=== PATIENT | female | born 1995 | race Caucasian/White ===

== ENCOUNTER 2017-04-10 06:26 | Emergency (ER) | payer OTHER ==
[~2017-04-10 06:26] MED LIST: PREN1TAB63
--- NOTE | 2017-04-10 07:46 | PD ---
HPI Chief Complaint Contractions Date Seen: Apr 10, 2017 Time Seen: 07:43 Travel History International Travel<30 Days: No Contact w/Intl Traveler<30Days: No Known Affected Area: No History of Present Illness HPI 21-year-old who is at 40 weeks and 5 days comes in complaining of contractions since midnight. Patient had membrane stripping yesterday and states that she was 2 cm in the office yesterday. She has no adduction set up as she is trying to avoid induction if possible. 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 Group B strep Weeks Gestation: 40 Para: 0 : 2 History Past Medical History Narrative Medical Anemia Past Surgical History Narrative Surgical Knee surgery Family History Family History: Negative Social History Alcohol Use: No Tobacco Use: No Substance Abuse: No Allergies-Medications (Allergen,Severity, Reaction): Coded Allergies: valacyclovir (Verified Allergy, Intermediate, rash, 04/10/17) amoxicillin (Unverified Allergy, Mild, Hives, 11/20/16) penicillin G (Unverified Allergy, Mild, Hives, 11/20/16) Home Meds Reported Medications Multivit-Min W/Fe-FA ( Vitamins 0.8 mg) 1 Tab Tab 10/23/16 Review of Systems Except as stated in HPI: all other systems reviewed are Neg Physical Exam Narrative GENERAL: Well-nourished, well-developed patient. SKIN: Warm and dry. HEAD: Normocephalic and atraumatic. EYES: No scleral icterus. No injection or drainage. ENT: No nasal drainage noted. Mucous membranes pink. Airway patent. NECK: Supple, trachea midline. No JVD. CARDIOVASCULAR: Regular rate and rhythm without murmurs, gallops, or rubs. RESPIRATORY: Breath sounds equal bilaterally. No accessory muscle use. ABDOMEN/GI: Abdomen soft, non-tender, bowel sounds present, no rebound, no guarding Gravid to [-] weeks size. term size Fundal Height: [-] GENITOURINARY: External Genitalia: intact and normal in appearance BUS glands: [-] Normal Cervix: [-] Posterior Dilatation: [-] 1 Effacement: [-] 80 Station: [-] -3 Presentation: [-] Membranes: [intact or ruptured] intact Uterine Contractions: [-] Every 5-10 FHT's: Category: [-] 1 Baseline: [-] 140 Reactive: [-] Moderate Variability: [-] Moderate Decels: [-] Absent EXTREMITIES: No cyanosis or edema. BACK: Nontender without obvious deformity. No CVA tenderness. NEUROLOGICAL: Awake and alert. Motor and sensory grossly within normal limits. Five out of 5 muscle strength in all muscle groups. Normal speech. Cervical recheck at 0830 No change Contractions are more irregular and less painful Data Data Vital Signs Reviewed: Yes Group B Strep: Negative MDM Medical Record Reviewed: Yes Plan 21-year-old at 40 weeks 5 days with false labor Patient does not desire to stay for induction, she is attempting to have as normal labor as possible and would rather have spontaneous onset Patient has a follow-up at the office day after tomorrow Discharge home, labor precautions were reviewed Diagnosis Diagnosis: Primary Impression: 40 weeks gestation of Additional Impression: Uterine contractions during Disposition: DISCHARGE HOME Tenisha Orr MD Apr 10, 2017 07:46
== END 2017-04-10 08:39 | disposition home or self-care (01) ==
LOC: HOBED 06:26
DX: O47.1 False labor at or after 37 completed weeks of gestation (principal); Z3A.40 40 weeks gestation of pregnancy; Z88.0 Allergy status to penicillin; Z88.8 Allergy status to other drugs, medicaments and biological substances
CPT/HCPCS: 59025

== ENCOUNTER 2017-04-10 19:46 | Emergency (ER) | payer OTHER ==
--- NOTE | 2017-04-10 22:30 | PD ---
HPI Chief Complaint ctxs Date Seen: Apr 10, 2017 Time Seen: 22:20 Travel History International Travel<30 Days: No Contact w/Intl Traveler<30Days: No Known Affected Area: No History of Present Illness HPI pt. is a @ 40 5/7 weeks present w/ c/o ctxs. pt. seen earlier in day w / same c/o and had minimal cervical dilation. +FM, no lof/vb. pt. cervical exam /high/posterior and had no change after monitoring for 2 hours. Weeks Gestation: 40 Para: 0 : 2 History Past Medical History Medical History: Denies Significant Hx Past Surgical History Surgical History: No Previous Surgery Family History Family History: Negative Social History Alcohol Use: No Tobacco Use: No Substance Abuse: No Allergies-Medications (Allergen,Severity, Reaction): Coded Allergies: valacyclovir (Verified Allergy, Intermediate, rash, 04/10/17) amoxicillin (Unverified Allergy, Mild, Hives, 11/20/16) penicillin G (Unverified Allergy, Mild, Hives, 11/20/16) Home Meds Reported Medications Multivit-Min W/Fe-FA ( Vitamins 0.8 mg) 1 Tab Tab 10/23/16 Review of Systems Except as stated in HPI: all other systems reviewed are Neg Physical Exam Narrative GENERAL: Well-nourished, well-developed patient. SKIN: Warm and dry. HEAD: Normocephalic and atraumatic. EYES: No scleral icterus. No injection or drainage. ENT: No nasal drainage noted. Mucous membranes pink. Airway patent. NECK: Supple, trachea midline. No JVD. CARDIOVASCULAR: Regular rate and rhythm without murmurs, gallops, or rubs. RESPIRATORY: Breath sounds equal bilaterally. No accessory muscle use. BREASTS: Bilateral exam showed no masses , no retractions, no nipple discharge. ABDOMEN/GI: Abdomen soft, non-tender, bowel sounds present, no rebound, no guarding Gravid GENITOURINARY: External Genitalia: intact and normal in appearance Dilatation: 3 Effacement: 70 Station: high Presentation: cephalic Membranes: intact Uterine Contractions: q 2-4 mins FHT's: Category: 1 Reactive: + Variability: variability Decels: none EXTREMITIES: No cyanosis or edema. BACK: Nontender without obvious deformity. No CVA tenderness. NEUROLOGICAL: Awake and alert. Motor and sensory grossly within normal limits. Five out of 5 muscle strength in all muscle groups. Normal speech. Data Data Vital Signs Reviewed: Yes MDM Plan pt. to be d/c to home. fht reassuring. pt. most prob in latent labor. condition d/w pt. all ? answered. pt. given precautions for return. f/u as sched. Diagnosis Diagnosis: Primary Impression: Uterine contractions during Additional Impression: 40 weeks gestation of Disposition: DISCHARGE HOME Patient Instructions: General Instructions Departure Forms: Tests/Procedures Jose Leiva Jr., MD Apr 10, 2017 22:29
[2017-04-10] MEDS ORDERED: diphenhydrAMINE HCL 50 MG CAP PO ONE (23:00)
[2017-04-10] MEDS ORDERED: MEPERIDINE HCL 50 MG/ML VIAL IM ONE (23:00)
== END 2017-04-10 23:17 | disposition home or self-care (01) ==
LOC: HOBED 19:46
DX: O47.1 False labor at or after 37 completed weeks of gestation (principal); Z3A.40 40 weeks gestation of pregnancy; Z88.0 Allergy status to penicillin; Z88.8 Allergy status to other drugs, medicaments and biological substances
CPT/HCPCS: 96372; 99283; J2175; Q0163

== ENCOUNTER 2017-04-11 15:09 | Inpatient (IN) | payer OTHER ==
[2017-04-11] VITALS (7 sets, daily range): BP systolic 124–145; BP diastolic 77–92; PULSE 104–110; RESP 15–20; TEMP 98–98.1
[~2017-04-11] VITALS: Ht 167.6 cm; Wt 64.0 kg
[2017-04-11] MEDS ORDERED: LACTATED RINGER'S 1000 ML INJ 1,000 ML IV PRN (15:31)
--- NOTE | 2017-04-11 15:31 | HHI.HP ---
HPI Chief Complaint Labor pain Date Seen: Apr 11, 2017 Time Seen: 15:25 Travel History International Travel<30 Days: No Contact w/Intl Traveler<30Days: No Known Affected Area: No History of Present Illness HPI 21-year-old white female at 40-- 41 weeks patient with [facility] presents complaining of contraction pain. Denies bleeding or leakage of fluid. heart tracing is reactive. Contractions noted on the monitor. Weeks Gestation: 40 Para: 0 : 2 Last Menstrual Period: Apr 11, 2017 Miscarriage: 1 History Obstetric History Obstetric History 1 early loss Social History Alcohol Use: No Tobacco Use: No Substance Abuse: No Allergies-Medications (Allergen,Severity, Reaction): Coded Allergies: valacyclovir (Verified Allergy, Intermediate, rash, 04/10/17) amoxicillin (Unverified Allergy, Mild, Hives, 11/20/16) penicillin G (Unverified Allergy, Mild, Hives, 11/20/16) Home Meds Reported Medications Multivit-Min W/Fe-FA ( Vitamins 0.8 mg) 1 Tab Tab 10/23/16 Review of Systems General / Constitutional: No: Fever, Weight Gain, Chills, Other Eyes: No: Diploplia, Blurred Vision, Visual changes, Pain, Photophobia HENT: No: Headaches, Vertigo, Lightheadedness Cardiovascular: No: Irregular Rhythm, Chest Pain or Discomfort, Palpitations, Tachycardia, Syncope, Varicosities, Edema, Cyanosis Respiratory: No: Cough, Short of Breath, Other Gastrointestinal: Abdominal Pain, No: Nausea, Vomiting, Diarrhea Genitourinary: No: Decreased Urinary Output, Oliguria Musculoskeletal: No: Limited ROM, Weakness, Cramping, Edema, Pain Skin: No Rash, No Itching, No Dryness, No Lumps, No Change in Pigmentation, No Change in Nails, No Alopecia, No Lesions Neurologic: No: Weakness, Dizziness, Syncope, Focal Abnormalities, Coordination Problem, Headache, Slurred Speech, Seizures Psychiatric: No: Depression, Suicidal Ideations, Homicidal Ideation Endocrine: No: Heat Intolerance, Cold Intolerance, Polydipsia, Polyuria, Other Physical Exam Narrative GENERAL: Well-nourished, well-developed patient. SKIN: Warm and dry. HEAD: Normocephalic and atraumatic. EYES: No scleral icterus. No injection or drainage. ENT: No nasal drainage noted. Mucous membranes pink. Airway patent. NECK: Supple, trachea midline. No JVD. CARDIOVASCULAR: Regular rate and rhythm without murmurs, gallops, or rubs. RESPIRATORY: Breath sounds equal bilaterally. No accessory muscle use. BREASTS: Bilateral exam showed no masses , no retractions, no nipple discharge. ABDOMEN/GI: Abdomen soft, non-tender, bowel sounds present, no rebound, no guarding Gravid to [-40] weeks size Fundal Height: [36-] GENITOURINARY: External Genitalia: intact and normal in appearance BUS glands: [-] Cervix: [ant-] Dilatation: [6-] Effacement: [100-] Station: [0-] Presentation: [vtx-] Membranes: [intact ] Uterine Contractions: [reg-] FHT's: Category: 1[-] Baseline: [133-] Reactive: [-R] Variability: [mod-] Decels: [-none] EXTREMITIES: No cyanosis or edema. BACK: Nontender without obvious deformity. No CVA tenderness. NEUROLOGICAL: Awake and alert. Motor and sensory grossly within normal limits. Five out of 5 muscle strength in all muscle groups. Normal speech. Caprini VTE Risk Assessment Caprini VTE Risk Assessment: No/Low Risk (score <= 1) Caprini Risk Assessment Model Point Value = 1 Point Value = 2 Point Value = 3 Point Value = 5 Age 41-60 Minor surgery BMI > 25 kg/m2 Swollen legs Varicose veins or History of unexplained or recurrent spontaneous Oral contraceptives or hormone replacement Sepsis (< 1 month) Serious lung disease, including pneumonia (< 1 month) Abnormal pulmonary function Acute myocardial infarction Congestive heart failure (< 1 month) History of inflammatory bowel disease Medical patient at bed rest Age 61-74 Arthroscopic surgery Major open surgery (> 45 min) Laparoscopic surgery (> 45 min) Malignancy Confined to bed (> 72 hours) Immobilizing plaster cast Central venous access Age >= 75 History of VTE Family history of VTE Factor V Leiden Prothrombin [id number] Lupus anticoagulant Anticardiolipin antibodies Elevated serum homocysteine Heparin-induced thrombocytopenia Other congenital or acquired thrombophilia Stroke (< 1 month) Elective arthroplasty Hip, pelvis, or leg fracture Acute spinal cord injury (< 1 month) Prophylaxis Regimen Total Risk Factor Score Risk Level Prophylaxis Regimen 0-1 Low Early ambulation 2 Moderate Order ONE of the following: *Sequential Compression Device (SCD) *Heparin 5000 units SQ BID 3-4 Higher Order ONE of the following medications: *Heparin 5000 units SQ TID *Enoxaparin/Lovenox 40 mg SQ daily (WT < 150 kg, CrCl > 30 mL/min) *Enoxaparin/Lovenox 30 mg SQ daily (WT < 150 kg, CrCl > 10-29 mL/min) *Enoxaparin/Lovenox 30 mg SQ BID (WT < 150 kg, CrCl > 30 mL/min) AND/OR *Sequential Compression Device (SCD) 5 or more Highest Order ONE of the following medications: *Heparin 5000 units SQ TID (Preferred with Epidurals) *Enoxaparin/Lovenox 40 mg SQ daily (WT < 150 kg, CrCl > 30 mL/min) *Enoxaparin/Lovenox 30 mg SQ daily (WT < 150 kg, CrCl > 10-29 mL/min) *Enoxaparin/Lovenox 30 mg SQ BID (WT < 150 kg, CrCl > 30 mL/min) AND *Sequential Compression Device (SCD) Data Data Orders Orders Ob (2e) Additional Admit Info (04/11/17 15:18) Group B Strep: Negative Assessment/Plan Assessment and Plan Impression--term intrauterine now in active labor admitted with cervical dilation is 6/100/0 station, heart tracing is reactive contractions noted the patient's in obvious distress Plan--admit to labor and delivery, managed labor appropriately, anticipate vaginal delivery, will discuss with Dr. Vann covering doctor for Nahid James II, MD Apr 11, 2017 15:31
[2017-04-11] MEDS ORDERED: CITRIC ACID-SODIUM CITRATE LIQ 30 ML UDC PO SCH (15:45)
[2017-04-11] MEDS ORDERED: OXYTOCIN 30 UNITS-500ML PREMIX 500 ML IV ONE (15:45)
[2017-04-11] MEDS ORDERED: LIDOCAINE HCL 1% 50 ML VIAL I-DERMAL PRN (15:45)
[2017-04-11] MEDS ORDERED: MINERAL OIL 10 ML VIAL TOPICAL PRN (15:45)
[2017-04-11] MEDS ORDERED: SODIUM CHLORID 0.9% 500 ML INJ 500 ML IV PRN (15:45)
[2017-04-11] MEDS ORDERED: LIDOCAINE HCL 1% 50 ML VIAL INFIL PRN (15:45)
[2017-04-11] MEDS ORDERED: SODIUM CHLOR 0.9% 1000 ML INJ 1,000 ML IV PRN (15:51)
[2017-04-11 16:03] LABS: AUTOMATED NEUTROPHIL # 11.1 TH/MM3 (1.8-7.7); BASOPHIL % 0.2 % (0.0-2.0); EOSINOPHIL % 0.1 % (0.0-4.0); HEMATOCRIT 34.7 % (35.0-46.0); HEMOGLOBIN 11.6 GM/DL (11.6-15.3); LYMPH % 9.4 % (9.0-44.0); LYMPHOCYTE # 1.2 TH/MM3 (1.0-4.8); MEAN CELL VOLUME 82.9 FL (80.0-100.0); MEAN CORPUSCULAR HEMOGLOBIN 27.7 PG (27.0-34.0); MEAN CORPUSCULAR HGB CONC 33.4 % (32.0-36.0); MONO % 5.2 % (0.0-8.0); MONOCYTE # 0.7 TH/MM3 (0-0.9); NEUT % 85.1 % (16.0-70.0); PLATELET COUNT 343 TH/MM3 (150-450); RED BLOOD COUNT 4.19 MIL/MM3 (4.00-5.30); RED CELL DISTRIBUTION WIDTH 18.4 % (11.6-17.2); WHITE BLOOD COUNT 13.1 TH/MM3 (4.0-11.0)
[2017-04-11] MEDS: LACTATED RINGER'S 1000 ML INJ 1,000 ML IV SCH (16:32)
[2017-04-11 18:21] LABS: AMORPHOUS SEDIMENT, URINE RARE; BACTERIA, URINE RARE /hpf; BILIRUBIN, URINE NEG (NEG); BLOOD, URINE MOD (NEG); GLUCOSE,URINE NEG (NEG); KETONE, URINE 150 mg/dL (NEG); MUCUS URINE FEW /lpf (OCC); NITRITE,URINE NEG (NEG); SQUAMOUS EPITHELIAL CELL URINE 1 /hpf (0-5); URINE COLOR YELLOW (YELLW/STRAW); URINE LEUKOCYTE ESTERASE MOD (NEG)
[2017-04-11] MEDS ORDERED: LIDOCAINE HCL 1% 20 ML VIAL ONE (23:37)
[2017-04-12] VITALS (15 sets, daily range): BP systolic 85–137; BP diastolic 34–100; PULSE 105–124; RESP 15–18; TEMP 97.8–98.3; O2SAT 98
[2017-04-12] MEDS ORDERED: LIDOCAINE HCL 1% 20 ML VIAL ONE ×2 (02:18→02:23)
[2017-04-12] MEDS ORDERED: LIDOCAINE HCL 1% PF 5 ML AMPULE ONE ×2 (02:25→03:38)
[2017-04-12] MEDS ORDERED: OXYTOCIN 30 UNITS-500ML PREMIX 500 ML ONE (03:09)
[2017-04-12] MEDS: LACTATED RINGER'S 1000 ML INJ 1,000 ML IV SCH ×3 (03:34→17:02)
[2017-04-12] MEDS: IBUPROFEN 800 MG TAB PO PRN ×3 (03:43→21:09)
[2017-04-12] MEDS ORDERED: WITCH HAZEL 50%/GLYCERIN 12.5% 40 PAD JAR TOPICAL PRN (03:45)
[2017-04-12] MEDS ORDERED: SODIUM CHLORIDE 0.9% FLUSH 10 ML FLUSH IV FLUSH PRN (03:45)
[2017-04-12] MEDS ORDERED: ONDANSETRON ODT 4 MG TAB PO PRN (03:45)
[2017-04-12] MEDS ORDERED: ZOLPIDEM TARTRATE 5 MG TAB PO PRN (03:45)
[2017-04-12] MEDS ORDERED: ACETAMINOPHEN 325 MG TAB PO PRN (03:45)
[2017-04-12] MEDS ORDERED: ALUMINUM/MAGNESIUM/SIMETH 30 ML CUP PO PRN (03:45)
[2017-04-12] MEDS ORDERED: BENZOCAINE 20% TOPICAL SPRAY 60 ML CAN TOPICAL PRN (03:45)
[2017-04-12] MEDS ORDERED: OXYTOCIN 30 UNITS-500ML PREMIX 500 ML IV SCH (03:45)
--- NOTE | 2017-04-12 03:53 | PD.OB.DELI ---
Weeks gestation: 40 Anesthesia: Lidocaine pudendal block, Lidocaine local to perineum Episiotomy: None Vaginal Delivery: Forceps Presentation: Occiput anterior, Vertex Nuchal Cord: None Delayed cord clamping (45 sec): Yes : Male Delivery date: Apr 12, 2017 Delivery time: 02:35 One Minute : 8 Five Minute : 9 Weight: 3445 gm Placenta: Spontaneous delivery, Intact, Cord pH Laceration: Vaginal laceration, Perineal laceration, 2 deg Repair: Chromic running Estimated blood loss: 750 Additional Information Patient had a prolonged second stage pushed for 2-1/2 hours , she brought the presenting part to +2 station with left OA position that was almost a deep transverse arrest or transverse lie of the head Hernandez-Oneal forceps used for a low forcep delivery, one application was performed without difficulty with traction in the appropriate fashion and then delivery of the head, examining the baby forceps were placed in the appropriate positions and no significant sign of injury bruising or laceration to the baby. Cord pH 7.37. Mother delivered placenta without difficulty, right sidewall laceration was identified in 2-0 running chromic suture used to close the space and bring the tissue planes together and achieve hemostasis. The perineal body and posterior fourchette been stretched out by the force of delivery but there was only minimal laceration second-degree perineal laceration with attenuation of the rectal sphincter muscle but it was not torn it was only stretched out to a significant degree and this defect was closed in a running 2-0 Chromic Suture Also Close space below the vaginal mucosa is well as supported and re-align the anal sphincter the rectum was checked and there was no defect or laceration to the rectum no blowout hole or on a undetected fistula the rectovaginal space was intact, pudendal block was used for anesthesia along with a local lidocaine in the perineal body which worked very well for anesthesia for this repair, EBL was 750 cc, and mother tolerated procedure very well may be doing well in the nursery Nahid Drummond II, MD Apr 12, 2017 03:53
[2017-04-12] MEDS ORDERED: LIDOCAINE 2% JELLY 5 ML TUBE OTHER PRN (05:15)
[2017-04-12 08:06] LABS: HEMATOCRIT 22.2 % (35.0-46.0); HEMOGLOBIN 7.3 GM/DL (11.6-15.3)
--- NOTE | 2017-04-12 08:14 | HHI.OB ---
Subjective Post Day: 0 Remarks Nursing quietly after difficult second stage with outlet forceps and side wall repairs (thank you Dr. Drummond) feeling somewhat light headed and aware that she may need transfusion Objective Vitals/I&O Vital Signs Date Time Temp Pulse Resp B/P (MAP) Pulse Ox O2 Delivery O2 Flow Rate FiO2 04/11/17 19:30 98.1 15 04/11/17 19:25 107 126/77 (93) 04/11/17 18:00 104 129/80 (96) 04/11/17 15:42 107 124/80 (95) Objective Remarks GENERAL: Well-nourished, well-developed patient. CARDIOVASCULAR: Regular rate and rhythm without murmurs, gallops, or rubs. RESPIRATORY: Breath sounds equal bilaterally. No accessory muscle use. ABDOMEN/GI: Abdomen soft, non-tender. Fundus: Firm, non-tender at umbilicus. GENITOURINARY: Light to moderate bleeding. perineum mildly swollen and reed in place with clear urine EXTREMITIES: No cyanosis or edema, non-tender, without signs of DVT. Medications and IVs Current Medications Medications (Trade) Dose Ordered Sig/Helio Route Start Time Stop Time Status Last Admin (NS Flush) 2 ml BID IV FLUSH 04/12/17 09:00 (NS Flush) 2 ml UNSCH PRN IV FLUSH 04/12/17 03:45 Oxytocin 500 ml @ 100 mls/hr CONTINUOUS IV 04/12/17 03:45 04/12/17 08:44 04/12/17 04:45 (Tylenol) 650 mg Q4H PRN PO 04/12/17 03:45 (Motrin) 800 mg Q8H PRN PO 04/12/17 03:45 04/12/17 03:43 (Percocet 5-325 Mg) 1 tab Q4H PRN PO 04/12/17 03:45 (Americaine 20% Top Spr) 1 spray Q4H PRN TOPICAL 04/12/17 03:45 (Tucks Pads) 1 applic QID PRN TOPICAL 04/12/17 03:45 (Mitzy-Colace) 2 tab Q12H PRN PO 04/12/17 03:45 (Ambien) 5 mg HS PRN PO 04/12/17 03:45 (M-M-R Ii Inj) 0.5 ml ONCE ONCE SQ 04/12/17 16:00 04/12/17 16:01 (Boostrix Inj) 0.5 ml ONCE ONCE IM 04/12/17 16:00 04/12/17 16:01 (Mag-Al Plus Susp Liq) 15 ml Q8H PRN PO 04/12/17 03:45 (Zofran Odt) 4 mg Q6H PRN PO 04/12/17 03:45 (Xylocaine 2% Jelly) 1 applic ONCE PRN OTHER 04/12/17 05:15 04/19/17 05:14 Assessment/Plan Assessment and Plan Impression--term intrauterine now in active labor admitted with cervical dilation is 6/100/0 station, heart tracing is reactive contractions noted the patient's in obvious distress Plan--admit to labor and delivery, managed labor appropriately, anticipate vaginal delivery, will discuss with Dr. Vann covering doctor for Shima 04/12/17 0800 Reviewed her delivery experience and she is relieved not to have had a section. She understands she may need transfusion but accepts venoifir at this time and will wait for clinical improvement of orthostatics or blood. Esperanza Covington MD Apr 12, 2017 08:14
[2017-04-12] MEDS ORDERED: IRON SUCROSE 100 MG/5 ML VIAL IV PUSH ONE (08:15)
[2017-04-12] MEDS: SODIUM CHLORIDE 0.9% FLUSH 10 ML FLUSH IV FLUSH SCH (10:29)
[2017-04-12] MEDS: DOCUSATE SODIUM 50 MG/SENNA 8.6 MG TAB PO PRN (12:19)
[2017-04-12] MEDS: oxyCODONE/ACETAMINOPHEN 5 MG/325 MG TAB PO PRN ×2 (12:19→19:40)
[2017-04-12] MEDS ORDERED: MEASLES, MUMPS, RUBELLA VACCINE 0.5 ML VIAL SQ ONE (16:00)
[2017-04-12] MEDS ORDERED: DIPHTH/TETANUS/ACEL PERTUSSIS (BOOSTER) 0.5 ML VIAL/PFS IM ONE (16:00)
[2017-04-13] MEDS: oxyCODONE/ACETAMINOPHEN 5 MG/325 MG TAB PO PRN ×2 (03:59→08:56)
[2017-04-13 06:18] LABS: AUTOMATED NEUTROPHIL # 6.4 TH/MM3 (1.8-7.7); BASOPHIL % 0.2 % (0.0-2.0); EOSINOPHIL # 0.1 TH/MM3 (0-0.4); EOSINOPHIL % 0.6 % (0.0-4.0); LYMPH % 23.5 % (9.0-44.0); LYMPHOCYTE # 2.2 TH/MM3 (1.0-4.8); MEAN CELL VOLUME 83.7 FL (80.0-100.0); MEAN CORPUSCULAR HEMOGLOBIN 28.4 PG (27.0-34.0); MEAN PLATELET VOLUME 7.8 FL (7.0-11.0); MONO % 8.9 % (0.0-8.0); MONOCYTE # 0.8 TH/MM3 (0-0.9); NEUT % 66.8 % (16.0-70.0); PLATELET COUNT 245 TH/MM3 (150-450); RED BLOOD COUNT 1.97 MIL/MM3 (4.00-5.30); RED CELL DISTRIBUTION WIDTH 18.6 % (11.6-17.2); WHITE BLOOD COUNT 9.5 TH/MM3 (4.0-11.0)
[2017-04-13 06:32] LABS: HEMATOCRIT 16.5 % (35.0-46.0); HEMOGLOBIN 5.6 GM/DL (11.6-15.3)
[2017-04-13] MEDS ORDERED: LACTATED RINGER'S 1000 ML INJ 500 ML IV ONE (07:00)
[2017-04-13] MEDS: SODIUM CHLORIDE 0.9% FLUSH 10 ML FLUSH IV FLUSH SCH ×2 (08:27→08:28)
--- NOTE | 2017-04-13 08:34 | HHI.OB ---
Subjective Post Day: 1 Remarks s/p forceps delivery PPD #1, hg=5 will transfuse 2u prbc Objective Vitals/I&O vss afeb Objective Remarks GENERAL: Well-nourished, well-developed patient. CARDIOVASCULAR: Regular rate and rhythm without murmurs, gallops, or rubs. RESPIRATORY: Breath sounds equal bilaterally. No accessory muscle use. ABDOMEN/GI: Abdomen soft, non-tender. Fundus: Firm, non-tender at umbilicus. GENITOURINARY: Light to moderate bleeding. EXTREMITIES: No cyanosis or edema, non-tender, without signs of DVT. Medications and IVs Current Medications Medications (Trade) Dose Ordered Sig/Helio Route Start Time Stop Time Status Last Admin (NS Flush) 2 ml BID IV FLUSH 04/12/17 09:00 (NS Flush) 2 ml UNSCH PRN IV FLUSH 04/12/17 03:45 (Tylenol) 650 mg Q4H PRN PO 04/12/17 03:45 (Motrin) 800 mg Q8H PRN PO 04/12/17 03:45 04/12/17 21:09 (Percocet 5-325 Mg) 1 tab Q4H PRN PO 04/12/17 03:45 04/13/17 03:59 (Americaine 20% Top Spr) 1 spray Q4H PRN TOPICAL 04/12/17 03:45 04/12/17 12:19 (Tucks Pads) 1 applic QID PRN TOPICAL 04/12/17 03:45 04/12/17 12:19 (Mitzy-Colace) 2 tab Q12H PRN PO 04/12/17 03:45 04/12/17 12:19 (Ambien) 5 mg HS PRN PO 04/12/17 03:45 (Mag-Al Plus Susp Liq) 15 ml Q8H PRN PO 04/12/17 03:45 (Zofran Odt) 4 mg Q6H PRN PO 04/12/17 03:45 (Xylocaine 2% Jelly) 1 applic ONCE PRN OTHER 04/12/17 05:15 04/19/17 05:14 Lactated Ringer's 1,000 ml @ 125 mls/hr Q8H IV 04/12/17 11:00 3/8/18 17:02 Assessment/Plan Problem List: (1) Forcep deliv NOS-deliver ICD Codes: O66.5 - Attempted application of vacuum extractor and forceps Assessment and Plan s/p forceps delivery PPD #1 hg=5, will transfuse 2u prbc, pt understands plan Discharge Planning routine Attending Attestation seen by Ne Meadows MD Apr 13, 2017 08:34
[2017-04-13] MEDS: IBUPROFEN 800 MG TAB PO PRN (08:57)
[2017-04-13 10:47] VITALS: BP 104/60; PULSE 96; RESP 16; TEMP 98.2
[2017-04-13 11:47] VITALS: BP 108/69; PULSE 100; RESP 18; TEMP 98.3; O2SAT 100
[2017-04-13] MEDS: LACTATED RINGER'S 1000 ML INJ 1,000 ML IV SCH ×2 (14:03→19:41)
[2017-04-13 14:29] VITALS: BP 102/63; PULSE 105; RESP 18; TEMP 98.2
[2017-04-13 14:41] VITALS: BP 87/53; PULSE 100; RESP 18; TEMP 98.5
[2017-04-13 16:25] VITALS: BP_SYST 104; BP_SYST 140; BP_DIAS 58
[2017-04-13 20:00] VITALS: BP 124/78; PULSE 111; RESP 18; TEMP 98.2
[2017-04-13 21:38] LABS: AUTOMATED NEUTROPHIL # 8.6 TH/MM3 (1.8-7.7); BASOPHIL % 0.4 % (0.0-2.0); EOSINOPHIL # 0.1 TH/MM3 (0-0.4); EOSINOPHIL % 0.9 % (0.0-4.0); HEMOGLOBIN 9.6 GM/DL (11.6-15.3); LYMPH % 21.8 % (9.0-44.0); LYMPHOCYTE # 2.7 TH/MM3 (1.0-4.8); MEAN CELL VOLUME 85.1 FL (80.0-100.0); MEAN CORPUSCULAR HEMOGLOBIN 29.2 PG (27.0-34.0); MEAN CORPUSCULAR HGB CONC 34.4 % (32.0-36.0); MEAN PLATELET VOLUME 7.5 FL (7.0-11.0); MONO % 7.8 % (0.0-8.0); NEUT % 69.1 % (16.0-70.0); PLATELET COUNT 313 TH/MM3 (150-450); RED BLOOD COUNT 3.29 MIL/MM3 (4.00-5.30); RED CELL DISTRIBUTION WIDTH 18.5 % (11.6-17.2); WHITE BLOOD COUNT 12.5 TH/MM3 (4.0-11.0)
[2017-04-14] MEDS: DOCUSATE SODIUM 50 MG/SENNA 8.6 MG TAB PO PRN (02:45)
[2017-04-14] MEDS: oxyCODONE/ACETAMINOPHEN 5 MG/325 MG TAB PO PRN (02:46)
[2017-04-14] MEDS: IBUPROFEN 800 MG TAB PO PRN (02:46)
[2017-04-14] MEDS: LACTATED RINGER'S 1000 ML INJ 1,000 ML IV SCH (03:51)
[2017-04-14 08:00] VITALS: BP 92/67; PULSE 96; RESP 18; TEMP 97.8; O2SAT 99
--- NOTE | 2017-04-14 10:10 | HHI.OB ---
Subjective Post Day: 2 Remarks doing well after transfusion Objective Vitals/I&O Vital Signs Date Time Temp Pulse Resp B/P (MAP) Pulse Ox O2 Delivery O2 Flow Rate FiO2 04/14/17 08:00 97.8 18 92/67 (75) 99 04/14/17 08:00 96 04/13/17 20:00 98.2 04/13/17 20:00 111 18 124/78 (93) 04/13/17 16:25 140/58 04/13/17 16:25 104/58 04/13/17 16:25 104/58 04/13/17 14:41 98.5 100 18 87/53 04/13/17 14:29 98.2 105 18 102/63 04/13/17 11:47 98.3 100 18 108/69 100 04/13/17 10:47 98.2 96 16 104/60 Objective Remarks GENERAL: Well-nourished, well-developed patient. CARDIOVASCULAR: Regular rate and rhythm without murmurs, gallops, or rubs. RESPIRATORY: Breath sounds equal bilaterally. No accessory muscle use. ABDOMEN/GI: Abdomen soft, non-tender. Fundus: Firm, non-tender at umbilicus. GENITOURINARY: Light to moderate bleeding. EXTREMITIES: No cyanosis or edema, non-tender, without signs of DVT. Medications and IVs Current Medications Medications (Trade) Dose Ordered Sig/Helio Route Start Time Stop Time Status Last Admin (NS Flush) 2 ml BID IV FLUSH 04/12/17 09:00 (NS Flush) 2 ml UNSCH PRN IV FLUSH 04/12/17 03:45 (Tylenol) 650 mg Q4H PRN PO 04/12/17 03:45 (Motrin) 800 mg Q8H PRN PO 04/12/17 03:45 04/14/17 02:46 (Percocet 5-325 Mg) 1 tab Q4H PRN PO 04/12/17 03:45 04/14/17 02:46 (Americaine 20% Top Spr) 1 spray Q4H PRN TOPICAL 04/12/17 03:45 04/12/17 12:19 (Tucks Pads) 1 applic QID PRN TOPICAL 04/12/17 03:45 04/12/17 12:19 (Mitzy-Colace) 2 tab Q12H PRN PO 04/12/17 03:45 04/14/17 02:45 (Ambien) 5 mg HS PRN PO 04/12/17 03:45 (Mag-Al Plus Susp Liq) 15 ml Q8H PRN PO 04/12/17 03:45 (Zofran Odt) 4 mg Q6H PRN PO 04/12/17 03:45 (Xylocaine 2% Jelly) 1 applic ONCE PRN OTHER 04/12/17 05:15 04/19/17 05:14 Lactated Ringer's 1,000 ml @ 125 mls/hr Q8H IV 04/12/17 11:00 04/12/17 17:02 Assessment/Plan Problem List: (1) Forcep deliv NOS-deliver ICD Codes: O66.5 - Attempted application of vacuum extractor and forceps Assessment and Plan s/p forceps delivery PPD #2 Discharge Planning routine Attending Attestation seen by Ne Meadows MD Apr 14, 2017 10:10
[2017-04-14] MEDS ORDERED: OXYC1TAB63 PO (10:12)
[2017-04-14] MEDS ORDERED: IBUP1TAB7 PO (10:12)
--- NOTE | 2017-04-14 10:12 | HHI.DCPOC ---
Discharge Care Plan Your Health Problems Are: Pelvic pain Report Symptoms to Your Doctor -Temperature above 100.5 degrees -Redness, of incision or excessive or foul smelling drainage -Unusual pain or calf pain -Increased vaginal bleeding -Painful or difficulty urinating -Feelings of extreme sadness or anxiety after 2 weeks Goals to Promote Your Health * To prevent worsening of your condition and complications * To maintain your health at the optimal level Directions to Meet Your Goals Take your medications as prescribed Follow your dietary instruction Follow activity as directed Ensure plenty of rest for recovery Drink fluids for hydration Keep your appointments as scheduled Take your immunizations and boosters as scheduled If your symptoms worsen call your PCP, if no PCP go to Urgent Care Center or Emergency Room Smoking is Dangerous to Your Health. Avoid second hand smoke Call the 24-hour crisis hotline for domestic abuse at Ne Cormier MD Apr 14, 2017 10:12
== END 2017-04-14 11:39 | disposition home or self-care (01) | DRG 775 ==
LOC: HOBED 15:09 → H2EA 15:21 → H1EA 04-12 09:52
PROVIDERS: ADMIT Obstetrics & Gynecology; ATTEND Obstetrics & Gynecology
PROC: 10D07Z3 Extraction of Products of Conception, Low Forceps, Via Natural or Artificial Opening (ICD-10-PCS; principal; 2017-04-12)
PROC: 0KQM0ZZ Repair Perineum Muscle, Open Approach (ICD-10-PCS; 2017-04-12)
PROC: 30233N1 Transfusion of Nonautologous Red Blood Cells into Peripheral Vein, Percutaneous Approach (ICD-10-PCS; 2017-04-13)
DX: O70.1 Second degree perineal laceration during delivery (principal); Z37.0 Single live birth; O47.1 False labor at or after 37 completed weeks of gestation; O63.1 Prolonged second stage (of labor); R42 Dizziness and giddiness; Z3A.40 40 weeks gestation of pregnancy; Z23 Encounter for immunization; Z88.0 Allergy status to penicillin; Z88.8 Allergy status to other drugs, medicaments and biological substances
CPT/HCPCS: 36430; 59025; 76937; 80307; 81001; 82805; 84112; 85014; 85018; 85025; 86850; 86900; 86901; 86920; J1756; J2590; J3010; J7120; P9016